=== PATIENT | male | born 1970 | race Hispanic/Latino ===

== ENCOUNTER 2019-09-30 23:15 | Emergency (ER) | payer SELFPAY ==
[~2019-09-30] VITALS: Ht 170.2 cm; Wt 65.8 kg
--- OUTSIDE RECORDS SUMMARY | 2019-09-30 23:18 | XMS REPORT ---
[facility] Address Unknown Phone Unavailable Care Team Providers Care Back End Web Developer Name Role Phone Unavailable Unavailable Problems This patient has no known problems. Allergies, Adverse Reactions, Alerts This patient has no known allergies or adverse reactions. Medications This patient has no known medications. Encounters Start Date/Time End Date/Time Encounter Type Admission Type Attending [facility] Care Department Encounter ID 2019-10-27 00:00:00 2019-10-27 00:00:00 Outpatient [facility] [id number] 2019-09-10 09:11:59 2019-09-10 09:11:59 Outpatient [facility] [id number] 2019-08-26 13:06:40 2019-08-26 13:06:40 Outpatient [facility] [id number] 2019-08-19 00:00:00 2019-08-19 00:00:00 Outpatient [facility] [id number] 2019-08-19 00:00:00 2019-08-19 00:00:00 Outpatient [facility] [id number] 2019-08-18 00:00:00 2019-08-18 00:00:00 Outpatient [facility] [id number] 2019-08-18 00:00:00 2019-08-18 00:00:00 Outpatient [facility] [id number] 2019-08-18 00:00:00 2019-08-18 00:00:00 Outpatient [facility] [id number] 2019-08-17 06:36:10 2019-08-17 06:36:10 Outpatient [facility] [id number] 2019-08-13 00:00:00 2019-08-13 00:00:00 Outpatient [facility] [id number] 2019-08-06 12:30:03 2019-08-06 12:30:03 Outpatient [facility] [id number] 2019-07-31 09:10:32 2019-07-31 09:10:32 Outpatient [facility] [id number] 2019-07-31 00:00:00 2019-07-31 00:00:00 Outpatient [facility] [id number] 2019-07-27 14:04:39 2019-07-27 14:04:39 Outpatient [facility] [id number] 2019-07-27 00:00:00 2019-07-27 00:00:00 Outpatient [facility] [id number] 2019-03-30 22:14:19 2019-03-30 22:14:19 Emergency [facility] [id number]
[2019-09-30] MEDS ORDERED: PANTOPRAZOLE 40 MG 10ML VIAL IV STA (23:23)
[2019-09-30] MEDS ORDERED: SODIUM CHLORIDE 0.9% 1000ML 1,000 ML IV STA (23:23)
[2019-09-30 23:57] LABS: BASOPHILS % 0.4 % (0.0-1.0); EOSINOPHILS # (AUTO) 0.1 (0.0-0.4); EOSINOPHILS % 0.7 % (0.0-6.0); HEMATOCRIT 34.8 % (38.2-49.6); HEMOGLOBIN 11.2 g/dL (14.0-18.0); LYMPHOCYTES % 18.1 % (18.0-39.1); MEAN CORPUSCULAR HEMOGLOBIN 27.6 pg (28-32); MEAN CORPUSCULAR HGB CONC 32.2 g/dL (31-35); MEAN CORPUSCULAR VOLUME 85.7 fL (81-99); MONOCYTES # (AUTO) 1.3 (0.2-0.8); MONOCYTES % 11.7 % (4.4-11.3); NEUTROPHILS # (AUTO) 7.7 (2.1-6.9); NEUTROPHILS % 68.8 % (38.7-80.0); PLATELET COUNT 519 x10e3/uL (140-360); RED BLOOD COUNT 4.06 x10e6/uL (4.3-5.7); RED CELL DISTRIBUTION WIDTH 16.6 % (11.7-14.4)
[2019-10-01 00:24] LABS: ALANINE AMINOTRANSFERASE 61 IU/L (0-55); ALBUMIN 3.3 g/dL (3.5-5.0); ALBUMIN/GLOBULIN RATIO 0.9 (0.8-2.0); ALKALINE PHOSPHATASE 281 IU/L (40-150); ANION GAP 14.1 mmol/L (8-16); BLOOD UREA NITROGEN 11 mg/dL (7-26); BUN/CREATININE RATIO 13 (6-25); CALCIUM 9.4 mg/dL (8.4-10.2); CARBON DIOXIDE 30 mmol/L (22-29); CHLORIDE 94 mmol/L (98-107); CREATINE KINASE 127 IU/L (30-200); CREATININE, SERUM 0.86 mg/dL (0.72-1.25); EST GLOMERULAR FILTRATION RATE > 60 ML/MIN (60-); GLUCOSE 122 mg/dL (74-118); LIPASE 13 U/L (8-78); POTASSIUM 4.1 mmol/L (3.5-5.1); SODIUM 134 mmol/L (136-145)
[2019-10-01 00:39] LABS: BILIRUBIN,URINE NEGATIVE (NEGATIVE); CLARITY,URINE CLEAR (CLEAR); COLOR,URINE YELLOW (YELLOW); KETONES,URINE TRACE (NEGATIVE); LEUKOCYTE ESTERASE ,URINE NEGATIVE (NEGATIVE); NITRITE,URINE NEGATIVE (NEGATIVE); PROTEIN,URINE DIPSTICK NEGATIVE (NEGATIVE); URINE UROBILINOGEN 1 mg/dL (0.2 - 1)
[2019-10-01 00:48] LABS: BACTERIA,URINE FEW /HPF; RBC,URINE 0-5 /HPF (0-5); WBC,URINE (MAN) 0-5 /HPF (0-5)
[2019-10-01 00:49] LABS: EPITHELIAL CELLS,URINE RARE /LPF; MUCUS,URINE MANY (RARE)
[2019-10-01 01:44] LABS: INR 0.93
--- NOTE | 2019-10-01 02:50 | Diagnostic Imaging Report ---
EXAM: CT Abdomen and Pelvis WITH contrast INDICATION: Epigastric pain, history of stage IV gastric cancer with hematemesis. COMPARISON: None. TECHNIQUE: Abdomen and pelvis were scanned utilizing a multidetector helical scanner from the lung base to the pubic symphysis after administration of IV contrast. Coronal and sagittal reformations were obtained. Routine protocol was performed. Scan was performed when during portal venous phase. IV CONTRAST: 100 cc of Isovue-370 ORAL CONTRAST: None. COMPLICATIONS: None RADIATION DOSE: Total DLP: 172.8 mGy*cm Estimated effective dose: (DLP x 0.015 x size factor) mSv CTDIvol has been reviewed. It is below the limits set by the Radiation Protocol Committee (RPC). FINDINGS: LINES and TUBES: None. LOWER THORAX: Moderate hiatal hernia. HEPATOBILIARY: Numerous (greater than 40) bilateral hypodense hepatic masses and lesions. For example, a left hepatic lobe mass, measuring up to 5.4 cm on series 2, image 15 and segment 5 hepatic lobe mass measuring up to 4.2 cm on image 25. GALLBLADDER: No radio-opaque stones or sludge. No wall thickening. SPLEEN: No splenomegaly. PANCREAS: No focal masses or ductal dilatation. ADRENALS: No adrenal nodules KIDNEYS/URETERS: Kidneys enhance symmetrically. No evidence of hydronephrosis, solid mass, or stone. GI TRACT: There is a distal gastric mass at the pylorus, measuring up to 3.6 x 3.6 cm the mass extends to the antrum where it measures up to 4.7 x 3.1 cm. No evidence of gastric outlet or bowel obstruction. There is mild wall thickening within the duodenum and proximal jejunal loops. Normal appendix. PELVIC ORGANS/BLADDER: The prostate is enlarged, measuring up to 5 cm. LYMPH NODES: There is perigastric lymphadenopathy, for example measuring up to 0.9 cm short axis on series 2, image 35. There is right pericardiac lymphadenopathy, measuring up to 1.9 cm on series 2, image 7. VESSELS: Unremarkable. PERITONEUM / RETROPERITONEUM: No free air or fluid. BONES AND SOFT TISSUES: Unremarkable. CONCLUSION: Distal gastric malignancy with numerous hepatic metastases and perigastric lymphadenopathy as above. No evidence of gastric outlet or bowel obstruction. Comparison with outside imaging would be helpful. Wall thickening within the duodenum and proximal jejunal loops may reflect enteritis in the appropriate clinical setting. Moderate hiatal hernia. Signed by: Dr. Slime Olson MD on 10/01/2019 2:47 AM
[2019-10-01 04:08] VITALS: BP 110/80
[2019-10-01] MEDS ORDERED: IOPAMIDOL 370 MG/ML 200 ML INFUS..BTL INJ ONE (04:10)
[2019-10-01] MEDS ORDERED: SODIUM CHLORIDE 0.9% 50ML 50 ML ONE (04:10)
== END 2019-10-01 03:18 | disposition home or self-care (01) ==
LOC: ER 23:15
DX: R10.13 Epigastric pain (principal); K92.0 Hematemesis; C16.9 Malignant neoplasm of stomach, unspecified; R16.0 Hepatomegaly, not elsewhere classified; N40.0 Benign prostatic hyperplasia without lower urinary tract symptoms
CPT/HCPCS: 36415; 74177; 80053; 81001; 82550; 82553; 83690; 83880; 84484; 85025; 85610; 93005; 99284; C9113; J7030; Q9967